=== PATIENT | female | born 1960 ===

== ENCOUNTER 2023-10-24 07:58 | Day surgery (SDC) | payer MEDICARE ==
[2023-10-24] MEDS ORDERED: Sodium Chloride 0.9% 10 ML Syringe FLUSH PRN (08:00)
[2023-10-24] MEDS: Lactated Ringers 1,000 ML IV SCH (08:12)
[2023-10-24] MEDS ORDERED: Propofol 200 MG/20 ML SDV ONE ×2 (08:48→08:49)
[2023-10-24] MEDS ORDERED: Glycopyrrolate 0.2 MG/ML SDV ONE (08:48)
[2023-10-24] MEDS ORDERED: Lidocaine 2% 100 MG/5 ML Syringe ONE (08:48)
[2023-10-24] MEDS ORDERED: Midazolam 1 MG/ML 2 ML SDV ONE (08:48)
== END 2023-10-24 10:58 | disposition home or self-care (01) ==
LOC: KA.SDS 07:58
PROVIDERS: ATTEND Surgery
DX: K29.50 Unspecified chronic gastritis without bleeding (principal); J44.9 Chronic obstructive pulmonary disease, unspecified; E78.5 Hyperlipidemia, unspecified; F17.210 Nicotine dependence, cigarettes, uncomplicated
CPT/HCPCS: 00731; 43239; J1596; J2250; J2704; J7120; J3490